=== PATIENT | female | born 1980 | race Caucasian/White ===

== ENCOUNTER 2017-09-19 21:01 | Emergency (ER) | payer OTHER ==
[~2017-09-19] VITALS: Ht 152.4 cm; Wt 58.4 kg
[~2017-09-19 21:01] MED LIST: DOXYCYCLINE HY100 MG PO; ENDOCET 5-3251 EACH PO; IBUPROFEN800 MG PO; IRON325 MG PO; PRENATAL TABLE1 EAC3 PO
[2017-09-19 21:03] VITALS: BP 124/82
== END 2017-09-19 23:07 | disposition home or self-care (01) ==
LOC: EME 21:01
DX: S61.213A Laceration without foreign body of left middle finger without damage to nail, initial encounter (principal); W27.2XXA Contact with scissors, initial encounter; Y93.89 Activity, other specified; Y99.0 Civilian activity done for income or pay; Z23 Encounter for immunization; F17.200 Nicotine dependence, unspecified, uncomplicated
CPT/HCPCS: 99281; 99284